=== PATIENT | male | born 1935 | race Caucasian/White ===

== ENCOUNTER → 2017-01-03 | Outpatient (REF) | payer MEDICARE ==
[~2017-01-03] MED LIST: ACET65TA OR; LOPR50TA OR; PERC5TAB8 OR; RAMI25CA OR; SYNT150T OR; pradaxa PO
[2017-01-03 20:31] LABS: TOTAL PROTEIN 6.7 GM/DL (6.4-8.2)
[2017-01-04 11:48] LABS: ALBUMIN 4.46 GM/DL (3.29-5.55); ALBUMIN % 66.5 % (55.8-66.1); GAMMA GLOBULIN % 7.7 % (11.1-18.8)
[2017-01-08 00:06] LABS: FREE KAPPA LIGHT CHAINS SERUM 161.3 mg/L (3.3-19.4); FREE LAMBDA LIGHT CHAINS SERUM 7.1 mg/L (5.7-26.3); KAPPA/LAMBDA RATIO SERUM 22.72 (0.26-1.65)
== END ==
LOC: M LAB REF 16:33
PROVIDERS: ATTEND Internal Medicine Medical Oncology
DX: C90.00 Multiple myeloma not having achieved remission (principal)

== ENCOUNTER → 2017-02-20 | Outpatient (REF) | payer OTHER ==
[2017-02-22 00:06] LABS: FREE KAPPA LIGHT CHAINS SERUM 186.9 mg/L (3.3-19.4); FREE LAMBDA LIGHT CHAINS SERUM 7.8 mg/L (5.7-26.3); KAPPA/LAMBDA RATIO SERUM 23.96 (0.26-1.65)
== END ==
LOC: M LAB REF 13:22
PROVIDERS: ATTEND Internal Medicine Medical Oncology
DX: C90.00 Multiple myeloma not having achieved remission (principal)

== ENCOUNTER → 2017-03-20 | Outpatient (REF) | payer OTHER ==
[2017-03-20 15:38] LABS: IMMUNOGLOBULIN G 432 MG/DL (681-1648); TOTAL PROTEIN 5.7 GM/DL (6.4-8.2)
[2017-03-20 16:32] LABS: IMMUNOGLOBULIN A < 7.8 MG/DL (70-400); IMMUNOGLOBULIN M 19.2 MG/DL (40-230)
[2017-03-22 00:06] LABS: FREE KAPPA LIGHT CHAINS SERUM 230.7 mg/L (3.3-19.4); FREE LAMBDA LIGHT CHAINS SERUM 5.7 mg/L (5.7-26.3); KAPPA/LAMBDA RATIO SERUM 40.47 (0.26-1.65)
[2017-03-22 12:20] LABS: ALBUMIN 3.66 GM/DL (3.29-5.55); ALBUMIN % 64.2 % (55.8-66.1); GAMMA GLOBULIN % 7.1 % (11.1-18.8)
== END ==
LOC: M LAB REF 08:11
PROVIDERS: ATTEND Internal Medicine Medical Oncology
DX: C90.00 Multiple myeloma not having achieved remission (principal)

== ENCOUNTER 2018-01-31 17:40 | Emergency (ER) | payer OTHER ==
[2018-01-31] MEDS ORDERED: EPINEPHrine 1MG/10ML SYRINGE 1.5IN ×2 (17:41)
[2018-01-31] MEDS ORDERED: ATROPINE SULF 1MG/10ML SYRINGE (J0461) ×2 (17:41)
[2018-01-31] MEDS ORDERED: SODIUM BICARBONATE 8.4% INJ 50 ML SYRINGE ×2 (17:41)
[2018-01-31] MEDS ORDERED: AMIODARONE 150MG/3ML INJ (J0282) ×2 (17:41)
[2018-01-31] MEDS ORDERED: MAGNESIUM SULFATE 1 GM/100 ML D5W BAG (10MG/ML) (J3475) ×2 (17:41)
[2018-01-31 18:28] LABS: BASO % 0.1 % (0.0-1.0); HEMATOCRIT 29.1 % (42.0-52.0); HEMOGLOBIN 10.2 g/dl (13.5-17.5); LYMPH % 14.9 % (24.0-44.0); MEAN CORPUSCULAR HEMOGLOBIN 35.3 pg (27.0-33.0); MEAN CORPUSCULAR HGB CONC 35.1 g/dl (32.0-36.5); MEAN CORPUSCULAR VOLUME 100.7 fl (80.0-96.0); MONO # 0.6 10^3/uL (0.0-0.8); MONO % 9.1 % (0.0-5.0); NEUTROPHILS % 74.9 % (36.0-66.0); PLATELET COUNT, AUTOMATED 205 10^3/uL (150-450); RED BLOOD COUNT 2.89 10^6/uL (4.30-6.10); RED CELL DISTRIBUTION WIDTH 15.6 % (11.5-14.5); WHITE BLOOD COUNT 6.7 10^3/uL (4.0-10.0)
[2018-01-31 18:53] LABS: ALBUMIN 4.1 GM/DL (3.2-5.2); ALBUMIN/GLOBULIN RATIO 1.24 (1.00-1.93); ALKALINE PHOSPHATASE 35 U/L (45-117); ALT/SGPT 17 U/L (12-78); ANION GAP 9 MEQ/L (8-16); AST/SGOT 18 U/L (7-37); BILIRUBIN,DIRECT 0.1 MG/DL (0.0-0.2); BILIRUBIN,TOTAL 0.8 MG/DL (0.2-1.0); BLOOD UREA NITROGEN 27 MG/DL (7-18); CARBON DIOXIDE LEVEL 25 MEQ/L (21-32); CHLORIDE LEVEL 100 MEQ/L (98-107); CREATININE FOR GFR 1.76 MG/DL (0.70-1.30); GLOMERULAR FILTRATION RATE 39.9 (>35); GLUCOSE, FASTING 147 MG/DL (70-100); LIPASE 95 U/L (73-393); POTASSIUM SERUM 4.8 MEQ/L (3.5-5.1); SODIUM LEVEL 134 MEQ/L (136-145); TOTAL PROTEIN 7.4 GM/DL (6.4-8.2)
[2018-01-31] MEDS: MORPHINE 4 MG/ML 1ML VIAL/SYRINGE (J2270) IV ×2 (19:13)
[2018-01-31] MEDS: METOCLOPRAMIDE INJ 10MG/2ML VIAL (J2765) IV ×2 (19:13)
[2018-01-31] MEDS: NS 500 ML IV ×2 (19:15)
[2018-01-31 19:31] LABS: INR 1.05; PROTHROMBIN TIME 13.8 SECONDS (12.1-14.4)
[2018-01-31 19:32] LABS: PARTIAL THROMBOPLASTIN TIME 25.7 SECONDS (25.4-37.6)
[2018-01-31 20:32] LABS: LACTIC ACID SEPSIS PROTOCOL 1.8 MMOL/L (0.4-2.0)
[2018-01-31] MEDS: ONDANSETRON 4MG/2ML VIAL (J2405) IV ×2 (20:53)
[2018-01-31] MEDS: MORPHINE 10 MG/ML 1ML VIAL (J2270) IV ×2 (20:54)
[2018-01-31] MEDS: GASTROGRAFIN SOLUTION 30ML PO ×2 (23:13)
[2018-02-01] MEDS: IPRATROPIUM 0.5MG/ALBUTEROL 2.5MG INH SOL UD 3ML (DUONEB)(J7620) NEB ×2 (00:04)
[2018-02-01] MEDS: cefTRIAXone SOD 1 GM in D5W MINI-BAG PLUS 50 ML IV (00:20)
[2018-02-01] MEDS: EPINEPHrine 1MG/10ML SYRINGE 1.5IN IV ×8 (00:35→00:40)
[2018-02-01] MEDS: AMIODARONE HCL 150 MG in APPROPRIATE DILUENT 1 EA IV (00:37)
[2018-02-01] MEDS: SODIUM BICARBONATE 8.4% INJ 50 ML SYRINGE IV ×2 (00:37)
== END 2018-02-01 00:45 | disposition home or self-care (01) ==
LOC: M ED 02-01 00:45
DX: K46.0 Unspecified abdominal hernia with obstruction, without gangrene (principal); K55.059 Acute (reversible) ischemia of intestine, part and extent unspecified; J18.9 Pneumonia, unspecified organism; I10 Essential (primary) hypertension; I48.91 Unspecified atrial fibrillation; E03.9 Hypothyroidism, unspecified; D64.9 Anemia, unspecified; Z79.899 Other long term (current) drug therapy; Z79.890 Hormone replacement therapy; Z79.01 Long term (current) use of anticoagulants
CPT/HCPCS: J2270